=== PATIENT | male | born 1985 | race Caucasian/White ===

== ENCOUNTER 2020-10-09 15:39 | Emergency (ER) | payer OTHER, SELFPAY ==
[2020-10-09 15:40] VITALS: BP 142/81; PULSE 112; RESP 16; TEMP 36.7; O2SAT 98; BMI 25.1
--- NOTE | 2020-10-09 16:50 | ED.VISSUMM ---
- ER Visit Summary Date of Service: 10/09/20 Chief Complaint: Right thumb laceration History of Present Illness: The patient is a 35 M who presents with a laceration to his right thumb that occurred approximately 2 hours prior to arrival. Patient states he was using a knife to cut zip ties when it slipped and cut his thumb. Patient states the bleeding lasted for several minutes. Patient admits to some mild dull pain in his thumb. Patient denies any paresthesias or weakness. Patient states nothing makes the pain better or worse. Patient states his last tetanus was less than 5 years ago. Physical Examination: Vital signs are stable. Patient is afebrile. Patient is in no acute distress. Skin is warm dry. There is a 2 cm full-thickness linear laceration over the pad of the right thumb. There is mild gapping of the wound margins. There is some mild bleeding noted. There are no foreign bodies noted. There is no bony crepitance or step-off. Sensation was intact to light touch in all digits. Capillary refill was less than 2 seconds in all digits. Strength is 5/5 in flexion and extension of the MP and IP joints of the right thumb. Emergency Department Course and Treatment: The wound was cleaned and irrigated with copious amounts of normal saline. The wound was anesthetized with 1% plain lidocaine via digital block. The wound was closed with 4 simple interrupted #4-0 nylon sutures under sterile technique. Patient tolerated the procedure well. Bacitracin dressing was applied. Patient was instructed to keep the wound clean and dry. Patient was instructed to follow-up with his primary care physician in 5 to 7 days for wound recheck and suture removal. Patient understood and was agreeable with the plan. All questions were answered. Disposition: Discharge home Impression: 1. Right thumb laceration This note was generated with [employer] dictation software. It may contain incorrect words, spelling, and punctuation that were not noted in review of the chart prior to signing ED Disposition - Plan for ED Patient: Disposition: Home or Assisted Living Diagnosis: Laceration of right thumb without foreign body without damage to nail Instructions: ED Laceration, Hand: All Closures Additional Instructions: Follow-up with your primary care physician in 5 to 7 days for wound recheck and suture removal. Return if worse in any way.
[2020-10-09] MEDS: Lidocaine 1% (20 ml mdv) 20 ML Vial INFILT (17:01)
[2020-10-09] MEDS: BACITRACIN 15 GM Tube 1 APPLIC TOPICAL (18:20)
[2020-10-09 18:24] VITALS: RESP 17
== END 2020-10-09 18:26 | disposition home or self-care (01) ==
LOC: ED 16:55
PROVIDERS: Emergency Provider Emergency Medicine; PCP Family Medicine
DX: S61.011A Laceration without foreign body of right thumb without damage to nail, initial encounter (principal); W26.0XXA Contact with knife, initial encounter; Y93.89 Activity, other specified; Y92.89 Other specified places as the place of occurrence of the external cause; Y99.8 Other external cause status
CPT/HCPCS: 12001; 99283

== ENCOUNTER 2023-03-30 15:46 | Emergency (ER) | payer OTHER, SELFPAY ==
[2023-03-30 15:47] VITALS: BP 164/110; PULSE 113; RESP 16; TEMP 36.4; O2SAT 98; BMI 24.6
--- NOTE | 2023-03-30 16:07 | NURSING ---
NO OLD EKGS
--- NOTE | 2023-03-30 16:22 | EX.ED.DYSGE1 ---
HPI History of Present Illness Chief Complaint: Dizziness Narrative Narrative: 38-year-old male with no known medical history presenting with a sensation of palpitations versus lightheadedness. He states this is new for him and started on Wednesday which is 3 days ago. He states that he typically eats a healthy diet, and at times does do some intermittent fasting but has not been doing this. He does report that he ate a bunch of junk food over the weekend since was . Patient notes that he is symptoms would come and last for 10 to 20 minutes and he would be able to recognize it but did not feel like he was going to faint. He states it was not like spinning. It was more like lightheaded. He does not have any chest pain or shortness of breath. 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 Has been drinking for the water. He states has been making normal urine. PFSH [facility] Medical History no medical history Home Medications NK 10/09/20 [History Last Taken Unknown] Allergy/AdvReac Type Severity Reaction Status Date / Time No Known Allergies Allergy Verified 03/30/23 15:49 Family History Other CVA (cerebral vascular accident) Myocardial infarction Social History Smoking Status: Never smoker ROS ROS ED Constitutional Constitutional ED: Denies chills or fever(s) Eyes Eyes: Denies change in vision or diplopia ENT ENT ED: Denies rhinorrhea or sore throat Cardiovascular Cardiovascular: Reports palpitations Respiratory/Chest Respiratory/Chest: Denies cough or dyspnea Gastrointestinal Gastrointestinal: Denies abdominal pain, constipation, diarrhea or nausea Genitourinary Genitourinary ED: Denies dysuria or hematuria Musculoskeletal Musculoskeletal: Denies arthralgias Integumentary Denies abscess or Abrasions Neurologic Neurologic: Denies headache(s) or paresthesias Psychiatric Psychiatric: Denies anxiety or depression EXAM Physical Exam Const Vital Signs: 03/30/23 15:47 03/30/23 15:55 03/30/23 16:26 Temperature 97.6 F L Temperature Source Temporal Pulse Rate 113 H Pulse Rate [Lying] Pulse Rate [Sitting (for 1 minute prior to obtaining)] Pulse Rate [Standing (for 1 minute prior to obtaining)] Respiratory Rate 16 Respiratory Effort Normal Blood Pressure 164/110 H Blood Pressure [Lying] Blood Pressure [Sitting (for 1 minute prior to obtaining)] Blood Pressure [Standing (for 1 minute prior to obtaining)] Blood Pressure Mean 128 Blood Pressure Mean [Lying] Blood Pressure Mean [Sitting (for 1 minute prior to obtaining)] Blood Pressure Mean [Standing (for 1 minute prior to obtaining)] Pulse Ox 98 96 Oxygen Delivery Method Room Air Room Air 03/30/23 16:27 Temperature Temperature Source Pulse Rate Pulse Rate [Lying] 89 Pulse Rate [Sitting (for 1 minute prior to obtaining)] 87 Pulse Rate [Standing (for 1 minute prior to obtaining)] 83 Respiratory Rate Respiratory Effort Blood Pressure Blood Pressure [Lying] 138/85 H Blood Pressure [Sitting (for 1 minute prior to obtaining)] 150/95 H Blood Pressure [Standing (for 1 minute prior to obtaining)] 148/110 H Blood Pressure Mean Blood Pressure Mean [Lying] 102 Blood Pressure Mean [Sitting (for 1 minute prior to obtaining)] 113 Blood Pressure Mean [Standing (for 1 minute prior to obtaining)] 122 Pulse Ox Oxygen Delivery Method Positive well nourished and well developed General Appearance ED: well developed and NAD; Negative for pallor HEENT Reports moist mucous membranes Eyes PERRL and EOMs intact bilaterally Resp normal respiratory effort and clear to auscultation bilaterally Auscultation: Negative for rales, rhonchi or wheezes Cardio regular rhythm Rate: tachycardic Neuro oriented x3, CN's II-XII intact bilaterally and no sensory deficits noted Sensorium / Orientation: alert Motor Exam: strength 5/5 throughout Psych mental status grossly normal Skin no rashes or lesions noted and no wounds General Skin Exam: Negative for jaundice or pallor MDM MDM MDM Narrative Medical decision making narrative: Patient presenting with symptoms of possible near syncope versus palpitations. He states he has not really felt like he was going to faint. He has been working outdoors the last couple of days and states that he did eat a lot of junk food over the weekend, but feels he is well-hydrated. He states that his diet is generally pretty nutritious and he does not have concern for electrolyte abnormalities. Differential includes dysrhythmia, electrolyte abnormalities, dehydration, pneumonia.he is not have any chest pain to suggest acute coronary syndrome. Given this I will obtain an EKG, troponin to assess for ischemia versus arrhythmia. CBC to assess white blood cell count, hemoglobin, platelets, differential. BMP to assess renal function, electrolytes, glucose, anion gap. Chest x-ray will be obtained to assess for pulmonary etiology. Orthostatic vital signs were obtained as well. Orthostatic vital signs are normal. CBC and BMP unremarkable with exception of potassium of 3.4. TSH is normal at 1.19. High-sensitivity troponin is 4. EKG sinus rhythm with a ventricular rate of 91 bpm. Chest x-ray my interpretation shows no acute cardiopulmonary process. The radiologist services and agrees. Given patient ultimately normal work-up I feel he safe for discharge. I did recommend that he follow-up as an outpatient to ensure resolution. Patient amenable to this. Return precautions discussed. Impression: 1. Lightheadedness Lab Data Labs: Laboratory Results - last 24 hr 03/30/23 03/30/23 16:14 16:14 WBC 6.3 RBC 4.73 Hgb 14.8 Hct 43.9 MCV 92.8 MCH 31.3 MCHC 33.7 RDW Std Deviation 44.1 H RDW Coeff of Carrie 12.9 Plt Count 292 MPV 10.2 Immature Gran % (Auto) 0.300 Neut % (Auto) 56.6 Lymph % (Auto) 35.0 Sharp % (Auto) 6.0 Eos % (Auto) 1.6 Baso % (Auto) 0.5 Absolute Neuts (auto) 3.6 Absolute Lymphs (auto) 2.22 Nucleated RBC % 0 Sodium 140 Potassium 3.4 L Chloride 105 Carbon Dioxide 26.0 Anion Gap 9 BUN 12 Creatinine 1.05 Estim Creat Clear Calc 99.60 Est GFR (MDRD) Af Amer 101 Est GFR (MDRD) Non-Af 83 BUN/Creatinine Ratio 11.4 Glucose 98 Calcium 9.5 Troponin I High Sens 4 TSH 1.19 Radiography Diagnostic Testing: Clinical Impression(s) from Imaging Studies Chest X-Ray 03/30/23 16:30 IMPRESSION: Normal x-ray examination of the chest. Electronically Signed: Dean Mckeon MD at 16:44 EDT , Discharge Plan Triage Chief Complaint: Dizziness ED Provider: Donnie Nance Dx/Rx/DC Orders Instructions: ED Dizziness, Uncertain Cause Prescriptions: No Action NK Primary Care Provider: Seth Soler Referrals: Seth Soler MD [Primary Care Provider] - Disposition Disposition: Home, Self Care
[2023-03-30 16:26] VITALS: O2SAT 96
[2023-03-30 16:27] VITALS: BP 138/85; BP 148/110; BP 150/95; PULSE 83; PULSE 87; PULSE 89
--- NOTE | 2023-03-30 16:30 | RAD_ITS ---
STUDY: X-RAY CHEST REASON FOR EXAM: Male, 38 years old. chest pain TECHNIQUE: Single AP portable view of the chest. COMPARISON: None. FINDINGS: The lungs are clear and expanded. There is no demonstrated pleural abnormality. Normal size heart. Normal mediastinum and stanley. Normal visualized pulmonary arteries. Normal visualized aortic arch and descending thoracic aorta. Normal visualized thoracic spine. Normal visualized ribs, clavicles, and shoulders. There is no demonstrated abnormality of the visualized soft tissue structures of the upper abdomen. RAD/Chest 1 View (Portable) IMPRESSION: Normal x-ray examination of the chest. Electronically Signed: Dean Mckeon MD at 16:44 EDT ,
[2023-03-30 16:51] LABS: Absolute Lymphocyte Count 2.22 X10^3/uL (0.83-4.51); Absolute Neutrophil Count 3.6 X10^3/uL (2.0-7.7); Basophil# 0.03 X10^3/uL; Basophil% 0.5 % (0-1); Eosinophils% 1.6 % (0-5); Hematocrit 43.9 % (40-54); Hemoglobin 14.8 g/dL (13.0-16.5); Lymphocyte # 2.22 X10^3/ul (0.83-4.51); Mean Corp Hgb Conc 33.7 g/dL (32-36); Mean Corpuscular Hgb 31.3 pg (27.0-32.0); Mean Corpuscular Volume 92.8 fL (80-94); Mean Platelet Vol. 10.2 fl (6.2-12.0); Monocyte# 0.38 X10^3/uL; NRBC Flagged by Analyzer 0 % (0-5); Neutrophil # 3.59 X10^3/uL (2.7-7.7); Neutrophil % 56.6 % (47-70); Platelet Count 292 K/mm3 (150-450); RBC Distribution Width CV 12.9 % (11.6-14.6); RBC Distribution Width SD 44.1 fl (35.1-43.9); Red Blood Count 4.73 M/mm3 (4.6-6.2); White Blood Count 6.3 K/mm3 (4.4-11.0)
[2023-03-30 17:11] LABS: Anion Gap 9 (5-15); BUN 12 mg/dL (7-18); BUN/Creat Ratio 11.4 RATIO (10-20); Calcium,Total 9.5 mg/dL (8.5-10.1); Chloride 105 mmol/L (98-107); Creatinine, Serum 1.05 mg/dL (0.70-1.30); EST Glomerular Filtration Rate 83 mL/min (>60); Est Glom Filt Rate - Afr Amer 101 mL/min (>60); Glucose 98 mg/dL (74-106); Potassium 3.4 mmol/L (3.5-5.1); Sodium Level 140 mmol/L (136-145); Thyroid Stim Hormone (TSH) 1.19 uIU/mL (0.358-3.74); Troponin-I HS 4 pg/mL (3.0-78.0)
[2023-03-30 18:19] VITALS: BP 133/87
== END 2023-03-30 18:19 | disposition home or self-care (01) ==
PROVIDERS: Emergency Provider Student in an Organized Health Care Education/Training Program; PCP Family Medicine; Visit Provider Student in an Organized Health Care Education/Training Program
DX: R42 Dizziness and giddiness (principal); R00.2 Palpitations
CPT/HCPCS: 71045; 80048; 84443; 84484; 85025; 93005; 99283; A4216